=== PATIENT | male | born 1970 | race Caucasian/White ===

== ENCOUNTER 2021-12-05 16:21 | Emergency (ER) | payer OTHER ==
[~2021-12-05] VITALS: Ht 177.8 cm; Wt 86.2 kg
[2021-12-05 16:37] VITALS: BP 130/82
--- NOTE | 2021-12-05 17:15 | NUR ---
51/M BIB FRIEND WITH C/O RIGHT KNEE PAIN X4 DAYS S/P TRIPPING ON A SIDE WALK. STATING PAIN AND SWELLING HAS GOTTEN WORSE SINCE, REPORTS NOT TAKING ANY PAIN MEDS. RIGHT KNEE APPEARS SWOLLEN AND TENDER TO TOUCH, PATIENT W/C ASSISTED IN.
[2021-12-05] MEDS ORDERED: KETOROLAC 30 MG/ML VIAL IM ONE (18:05)
[2021-12-05] MEDS ORDERED: NAPR-54 PO (18:14)
--- NOTE | 2021-12-05 18:37 | NUR ---
PLACED KNEE IMMOBILIZER ON PT'S RIGHT KNEE AND PT DEMONSTRATED PROPER USE OF CRUTCHES. PA NOTIFIED
[2021-12-05] MEDS: ACETAMINOPHEN 325 MG TAB PO ONE ×2 (18:44→18:51)
[2021-12-05] MEDS ORDERED: ACETAMINOPHEN 325 MG TAB ONE (18:44)
--- NOTE | 2021-12-05 18:53 | NUR ---
Patient discharged with v/s stable. Written and verbal after care instructions ABOUT CONTUSION AND KNEE SPRAIN given and explained. Patient alert, oriented and verbalized understanding of instructions. Ambulatory with steady gait. All questions addressed prior to discharge. ID band removed. Patient advised to follow up with PMD. Rx of NAPROXEN given. Patient educated on indication of medication including possible reaction and side effects. Opportunity to ask questions provided and answered.
== END 2021-12-05 18:53 | disposition home or self-care (01) ==
LOC: MED 16:21
DX: S80.01XA Contusion of right knee, initial encounter (principal); W19.XXXA Unspecified fall, initial encounter; Y93.89 Activity, other specified; Y92.89 Other specified places as the place of occurrence of the external cause; Y99.8 Other external cause status
CPT/HCPCS: 29505; 73562; 99283; J1885

== ENCOUNTER 2024-06-10 22:02 | Emergency (ER) | payer MEDICAID, OTHER ==
[~2024-06-10] VITALS: Ht 180.3 cm; Wt 80.7 kg
[~2024-06-10 22:02] MED LIST: NAPR-337 PO
[2024-06-10 22:18] VITALS: BP 125/82; PULSE 124; RESP 22; TEMP 98; O2SAT 97
[2024-06-10 22:56] LABS: BASOPHILS % (AUTO) 0.5 % (0.0-2.0); EOSINOPHILS % (AUTO) 0.1 % (0.0-4.0); HEMATOCRIT 42.1 % (36-52); LYMPHOCYTES # (AUTO) 0.8 K/uL (2.0-11.5); LYMPHOCYTES % (AUTO) 11.3 % (20.5-51.1); MEAN CORPUSCULAR HEMOGLOBIN 30 pg (27-31); MEAN CORPUSCULAR HGB CONC 33 g/dL (33-37); MEAN CORPUSCULAR VOLUME 90.9 fL (80-94); MONOCYTES % (AUTO) 13.9 % (1.7-9.3); NEUTROPHILS # (AUTO) 5.1 K/uL (1.8-7.7); NEUTROPHILS % (AUTO) 74.2 % (42.2-75.2); PLATELET COUNT (AUTO) 259 K/uL (140-450); RED BLOOD CELL COUNT(AUTO) 4.63 MIL/uL (4.20-6.10); RED CELL DISTRIBUTION WIDTH 12.9 % (11.6-13.7); WHITE BLOOD COUNT (AUTO) 6.9 K/uL (4.8-10.8)
[2024-06-10] MEDS: NACL 0.9% 1,000 ML IV ONE (23:06)
[2024-06-10] MEDS: LORazepam 2 MG/ML VIAL IVP ONE (23:07)
[2024-06-10 23:08] LABS: ANION GAP 8.4 (8-16); CALCIUM 8.5 mg/dL (8.5-10.1); CARBON DIOXIDE 32.3 mmol/L (21-32); CREATININE 1.1 mg/dL (0.6-1.3); POTASSIUM 3.7 mmol/L (3.5-5.1)
[2024-06-11 02:00] VITALS: BP 118/79; PULSE 91; RESP 19; TEMP 98; O2SAT 98
== END 2024-06-11 02:00 | disposition home or self-care (01) ==
LOC: MED 22:02
DX: F15.90 Other stimulant use, unspecified, uncomplicated (principal); R07.89 Other chest pain; R42 Dizziness and giddiness; E86.0 Dehydration; Z79.899 Other long term (current) drug therapy
CPT/HCPCS: 36415; 70450; 71045; 80048; 84484; 85025; 93005; 96361; 96374; 99285; J2060; Q0092